=== PATIENT | male | born 1985 | race African-American/Black ===

== ENCOUNTER 2019-07-22 14:26 | Emergency (ER) | payer SELFPAY ==
--- NOTE | 2019-07-22 15:08 | Emergency Department Report ---
ED Psych HPI - General Chief Complaint: Psych Stated Complaint: MENTAL EVAL Time Seen by Provider: 07/22/19 14:50 Source: patient Mode of arrival: Ambulatory - History of Present Illness Initial Comments: Patient is 34 years old male with history of bipolar disorder. Patient pre sented to the ER complaining of severe depression and suicidal ideation. Patient stated that he had history of methamphetamine abuse but he is clean for the last few month. Patient stated that he is having thoughts of killing himself. He stated that he spent the last night searching on [place] to find the easy way to kill himself. Patient stated that he thinking about drug overdose and sometimes he also think about jumping in a traffic or walking and highway. Patient also stated that he has been hearing voices. She denied visual hallucination or homicidal ideation. MD Complaint: suicidal ideation, feels depressed -: Last night Associated Psychiatric Symptoms: depression, suicidal ideation, auditory hallucinations History of same: Yes Quality: constant Improves With: none Associated Symptoms: denies other symptoms Treatments Prior to Arrival: none If Self Harm: admits thoughts of, has plan, intentional overdose, self-inflicted trauma - Related Data Home Medications Medication Instructions Recorded Confirmed Last Taken buPROPion SR [Wellbutrin SR] 100 mg PO DAILY 07/22/19 07/22/19 Unknown hydrOXYzine PAMOATE [Vistaril] 25 mg PO TID 07/22/19 07/22/19 Unknown Allergies Allergy/AdvReac Type Severity Reaction Status Date / Time No Known Allergies Allergy Unverified 07/22/19 14:33 ED Review of Systems ROS: Stated complaint: MENTAL EVAL Other details as noted in HPI Comment: All other systems reviewed and negative Constitutional: denies: chills, fever Respiratory: denies: cough, shortness of breath, SOB with exertion Cardiovascular: denies: chest pain Gastrointestinal: denies: abdominal pain, nausea, vomiting Neurological: denies: headache, weakness Psychiatric: depression, auditory hallucinations, suicidal thoughts. denies: visual hallucinations, homicidal thoughts ED Past Medical Hx - Past Medical History Previous Medical History?: Yes Hx Psychiatric Treatment: Yes - Social History Smoking Status: Current Every Day Smoker Substance Use Type: Methamphetamines - Medications Home Medications: Home Medications Medication Instructions Recorded Confirmed Last Taken Type buPROPion SR [Wellbutrin SR] 100 mg PO DAILY 07/22/19 07/22/19 Unknown History hydrOXYzine PAMOATE [Vistaril] 25 mg PO TID 07/22/19 07/22/19 Unknown History ED Physical Exam - General Limitations: No Limitations General appearance: alert, in no apparent distress - Head Head exam: Present: atraumatic, normocephalic, normal inspection - Eye Eye exam: Present: normal appearance, PERRL - ENT ENT exam: Present: normal exam, normal orophraynx, mucous membranes moist - Neck Neck exam: Present: normal inspection, full ROM. Absent: tenderness, meningismus, lymphadenopathy, thyromegaly - Respiratory Respiratory exam: Present: normal lung sounds bilaterally - Cardiovascular Cardiovascular Exam: Present: regular rate, normal rhythm, normal heart sounds - GI/Abdominal GI/Abdominal exam: Present: soft, normal bowel sounds. Absent: distended, tenderness, guarding, rebound, rigid, organomegaly, mass, bruit, pulsatile mass, hernia - Extremities Exam Extremities exam: Present: normal inspection, full ROM, normal capillary refill - Back Exam Back exam: Present: normal inspection, full ROM. Absent: CVA tenderness (R), CVA tenderness (L), muscle spasm, paraspinal tenderness - Neurological Exam Neurological exam: Present: alert, oriented X3, CN II-XII intact, normal gait, reflexes normal - Psychiatric Psychiatric exam: Present: depressed, suicidal ideation. Absent: agitated, anxious, flat affect, manic, homicidal ideation - Skin Skin exam: Present: warm, intact, normal color ED Course Vital Signs 07/22/19 07/22/19 07/23/19 14:28 20:11 01:35 Temperature 98.3 F 98.0 F 97.5 F L Pulse Rate 108 H 98 H 76 Respiratory 22 18 18 Rate Blood Pressure 145/93 118/82 137/58 [Right] O2 Sat by Pulse 98 96 98 Oximetry 07/23/19 07:00 Temperature 97.7 F Pulse Rate 89 Respiratory 18 Rate Blood Pressure 121/78 [Right] O2 Sat by Pulse 98 Oximetry ED Medical Decision Making - Lab Data Result diagrams: 07/22/19 15:12 07/22/19 15:12 Critical care attestation.: If time is entered above; I have spent that time in minutes in the direct care of this critically ill patient, excluding procedure time. ED Disposition Clinical Impression: Suicidal ideation, Depression Disposition: [id number]/TX-[id number] PSY HOSP/PSY UNIT Is pt being admited?: No Condition: Stable Referrals: DAMON WEST MD [Primary Care Provider] - 3-5 Days
[2019-07-22 15:25] LABS: Bilirubin,Urine NEG (Negative); Blood,Urine NEG (Negative); Color,Urine Yellow (Yellow); Mucus,Urine FEW /HPF; Urobilinogen,Urine < 2.0 mg/dL (<2.0); WBC,Urine < 1.0 /HPF (0.0-6.0)
[2019-07-22 15:37] LABS: Amphetamine Screen,Urine PRESUMPTIVE NEGATIVE; Benzodiazepines Screen,Urine PRESUMPTIVE NEGATIVE; Cannabinoid Screen,Urine PRESUMPTIVE NEGATIVE; Cocaine Screen,Urine PRESUMPTIVE NEGATIVE; Methadone Screen,Urine PRESUMPTIVE NEGATIVE; Opiate Screen,Urine PRESUMPTIVE NEGATIVE
[2019-07-22 15:54] LABS: Basophils % (Auto) 0.8 % (0.0-1.8); Eosinophils # (Auto) 0.2 K/mm3 (0.0-0.4); Hematocrit 34.3 % (35.5-45.6); Hemoglobin 11.7 gm/dl (11.8-15.2); Lymphocytes # (Auto) 1.4 K/mm3 (1.2-5.4); Lymphocytes % (Auto) 28.9 % (13.4-35.0); Mean Corpuscular HGB Conc 34 % (32-34); Mean Corpuscular Volume 89 fl (84-94); Monocytes # (Auto) 0.5 K/mm3 (0.0-0.8); Monocytes % (Auto) 10.8 % (0.0-7.3); Red Blood Count 3.83 M/mm3 (3.65-5.03); Red Cell Distribution Width 13.5 % (13.2-15.2)
[2019-07-22 15:57] LABS: BUN/Creatinine Ratio 13; Blood Urea Nitrogen 8 mg/dL (9-20); Calcium 8.5 mg/dL (8.4-10.2); Hemolysis Index 8
[2019-07-22 15:59] LABS: Alanine Aminotransferase 17 units/L (7-56); Albumin 3.9 g/dL (3.9-5)
[2019-07-22 16:16] LABS: Bilirubin,Direct < 0.2 mg/dL (0-0.2)
[2019-07-22 17:07] LABS: Platelet Count 48 K/mm3 (140-440)
[2019-07-22] MEDS ORDERED: IBUPROFEN 800 MG TAB ONE (19:42)
[2019-07-22] MEDS ORDERED: IBUPROFEN 800 MG TAB PO PRN (19:44)
[2019-07-22] MEDS ORDERED: hydrOXYzine PAMOATE 25 MG CAP ONE (20:56)
[2019-07-23 09:44] VITALS: BP 121/78
[2019-07-23] MEDS ORDERED: buPROPion 100 MG TAB PO SCH (10:00)
[2019-07-23] MEDS ORDERED: buPROPion 75 MG TAB PO SCH (10:00)
--- NOTE | 2019-07-23 13:54 | Consultation ---
History of Present Illness - Reason for Consult Consult date: 07/23/19 Reason for consult: Mental Health Evaluation Requesting physician: SHARA ROSALES - Chief Complaint Chief complaint: " I realized I needed help" - History of Present Psychiatric Illness Patient is a 34 y/o male with a mental health history. He reports that he is a patient of Dr. Krysten MD. Patient reports that he has been using Crystal meth for some time and this has led him to be suicidal. He reports that he did not need much more encouraging as he has long history of depression and anxiety. He reports that he suicidal thoughts that had long been on and off , but most recent he had been having suicidal ideation with intent and plan. He reports thoughts of going into the highway or hanging himself were frequent. He reports Auditory and visual hallucinations. Patient has been on med that were prescribed and he reports med compliance. Medications and Allergies Allergies Allergy/AdvReac Type Severity Reaction Status Date / Time No Known Allergies Allergy Unverified 07/22/19 14:33 Home Medications Medication Instructions Recorded Confirmed Last Taken Type buPROPion SR [Wellbutrin SR] 100 mg PO DAILY 07/22/19 07/22/19 Unknown History hydrOXYzine PAMOATE [Vistaril] 25 mg PO TID 07/22/19 07/22/19 Unknown History Past psychiatric history - Past Medical History Past Surgical History: No surgical history - past Psychiatric treatment and history Psych: Anxiety, Depression - Social History Social history: smoking Mental Status Exam - Vital signs Last Vital Signs Temp 97.7 F 07/23/19 07:00 Pulse 89 07/23/19 07:00 Resp 18 07/23/19 07:00 BP 121/78 07/23/19 07:00 Pulse Ox 98 07/23/19 07:00 - Exam Orientation: time, place, person Affect: depressed, anxious Mood: anxious Thought Process: Circumstantial, Tangential Perceptions: visual, auditory Speech: rapid Motor activity: restless Level of consciousness: alert Memory: Intact Interaction: cooperative Results Result Diagrams: 07/22/19 15:12 07/22/19 15:12 Abnormal lab results 07/22/19 07/22/19 07/22/19 Range/Units 15:12 15:12 15:12 Hgb (11.8-15.2) gm/dl Hct (35.5-45.6) % Plt Count (140-440) K/mm3 [place] % (Auto) (0.0-7.3) % BUN 8 L (9-20) mg/dL Creatinine 0.6 L (0.8-1.5) mg/dL Urine pH (5.0-7.0) Salicylates < 0.3 L (2.8-20.0) mg/dL Acetaminophen < 5.0 L (10.0-30.0) ug/mL 07/22/19 07/22/19 Range/Units 15:12 Unknown Hgb 11.7 L (11.8-15.2) gm/dl Hct 34.3 L (35.5-45.6) % Plt Count 48 L (140-440) K/mm3 [place] % (Auto) 10.8 H (0.0-7.3) % BUN (9-20) mg/dL Creatinine (0.8-1.5) mg/dL Urine pH 8.0 H (5.0-7.0) Salicylates (2.8-20.0) mg/dL Acetaminophen (10.0-30.0) ug/mL All other labs normal. Assessment and Plan Assessment and plan: Assessment with Plan Continue 1013 Patient is stable We will continue depakote at 500 mg BID Zoloft at 50mg Daily and wellbutrin 150 evaluate tomorrow possible inpatient status Will staff with Dr. Duane MD - Differential Diagnosis brief psychosis, bipolar with psychosis, schizophrenia, SCAD
[2019-07-23] MEDS ORDERED: hydrOXYzine PAMOATE 25 MG CAP PO SCH (22:00)
[2019-07-23] MEDS ORDERED: VALPROIC ACID 250 MG CAP PO SCH (22:00)
[2019-07-24] MEDS ORDERED: SERTRALINE 50 MG TAB PO SCH (10:00)
== END 2019-07-23 13:00 ==
LOC: EEVIPCON 14:26 → ED 14:26
DX: F32.9 Major depressive disorder, single episode, unspecified (principal); R45.851 Suicidal ideations; F41.9 Anxiety disorder, unspecified; F17.200 Nicotine dependence, unspecified, uncomplicated; Z79.899 Other long term (current) drug therapy
CPT/HCPCS: 36415; 80048; 80076; 80307; 80320; 81001; 85025; G0480; Q0177